=== PATIENT | male | born 2000 | race Caucasian/White ===

== ENCOUNTER 2020-06-20 12:15 | Emergency (ER) | payer BC ==
[~2020-06-20] VITALS: Ht 182.9 cm; Wt 88.6 kg
[2020-06-20 12:18] VITALS: BP 124/85; TEMP 99
[2020-06-20] MEDS ORDERED: SSD25 GM TP (13:09)
[2020-06-20 13:34] VITALS: PULSE 85
== END 2020-06-20 13:30 | disposition home or self-care (01) ==
LOC: COL.ER 12:15
DX: T24.101A Burn of first degree of unspecified site of right lower limb, except ankle and foot, initial encounter (principal); T24.102A Burn of first degree of unspecified site of left lower limb, except ankle and foot, initial encounter; T31.0 Burns involving less than 10% of body surface; X10.2XXA Contact with fats and cooking oils, initial encounter; Y92.009 Unspecified place in unspecified non-institutional (private) residence as the place of occurrence of the external cause

== ENCOUNTER 2020-08-14 12:33 | Emergency (ER) | payer BC ==
[~2020-08-14] VITALS: Ht 182.9 cm; Wt 86.4 kg
[~2020-08-14 12:33] MED LIST: SSD25 GM TP
[2020-08-14 12:34] VITALS: TEMP 98.2
[2020-08-14 12:50] LABS: BASO # 0.1 (0.0-0.2); BASO % 0.5 % (0.0-2.0); EOS # 0.2 (0.0-0.7); EOS % 2.3 % (0-4.0); GRAN # 7.9 (1.4-6.5); GRAN % 78.5 % (42.2-75.2); HEMATOCRIT 44.3 % (36.0-47.0); HEMOGLOBIN 15.1 g/dl (12.5-16.1); LYMPH # 1.2 (1.2-3.4); LYMPH % 12.1 % (20.0-51.0); MEAN CELL VOLUME 91 fl (80.0-95.0); MEAN CORPUSCULAR HEMOGLOBIN 31 pg (26.0-32.0); MEAN CORPUSCULAR HGB CONC 34 g/dl (33.0-37.0); MEAN PLATELET VOLUME 9.4 fl (7.4-10.4); MONO # 0.6 (0.1-0.6); MONO % 6.2 % (1.7-9.3); PLATELET COUNT 221 K/mm3 (130-400); RED BLOOD COUNT 4.89 M/mm3 (4.20-5.60); REDCELL DISTRIBUTION WIDTH-CV 12.7 % (11.5-14.5)
[2020-08-14 13:15] LABS: ALANINE AMINOTRANSFERASE 23 U/L (4-49); ALBUMIN 4.6 gm/dL (3.5-5.0); ALKALINE PHOSPHATASE 82 U/L (50-136); ANION GAP 9 mmol/L (7-16); AST,SGOT 44 U/L (15-37); BILIRUBIN,TOTAL 0.8 mg/dL (0.0-1.0); BLOOD UREA NITROGEN 12 mg/dL (9-20); CALCIUM 9.2 mg/dL (8.4-10.2); CARBON DIOXIDE 27 mmol/L (22-30); CHLORIDE 105 mmol/L (98-107); CREATININE, serum 0.92 (0.66-1.25); GLUCOSE 95 mg/dL (74-106); SODIUM 141 mmol/L (137-145); TOTAL PROTEIN 7.7 gm/dL (6.4-8.2)
[2020-08-14 13:17] LABS: ALCOHOL(ethanol),MEDICAL < 10 mg/dL
[2020-08-14] MEDS ORDERED: NORCO 325 MG-51 TAB PO (14:20)
[2020-08-14 14:40] VITALS: BP 122/76; PULSE 76
== END 2020-08-14 14:43 | disposition home or self-care (01) ==
LOC: COL.ER 12:33
PROVIDERS: Emergency Medicine
DX: S06.0X9A Concussion with loss of consciousness of unspecified duration, initial encounter (principal); S80.212A Abrasion, left knee, initial encounter; V29.9XXA Motorcycle rider (driver) (passenger) injured in unspecified traffic accident, initial encounter; Y92.410 Unspecified street and highway as the place of occurrence of the external cause

== ENCOUNTER 2022-03-27 19:16 | Emergency (ER) | payer BC ==
[~2022-03-27] VITALS: Ht 185.4 cm; Wt 88.6 kg
[~2022-03-27 19:16] MED LIST changes: +NORCO 325 MG-51 TAB PO
[2022-03-27 19:23] VITALS: BP 120/71; PULSE 107; TEMP 97.4
[2022-03-28] MEDS ORDERED: CEPHALEXIN500 M1 PO (03:01)
== END 2022-03-27 21:31 | disposition left against medical advice (07) ==
LOC: COL.ER 19:16
DX: S61.212A Laceration without foreign body of right middle finger without damage to nail, initial encounter (principal); F17.290 Nicotine dependence, other tobacco product, uncomplicated; Z28.310 Unvaccinated for COVID-19; W22.8XXA Striking against or struck by other objects, initial encounter

== ENCOUNTER 2022-03-29 00:10 | Emergency (ER) | payer BC ==
[~2022-03-29] VITALS: Ht 182.9 cm; Wt 86.4 kg
[~2022-03-29 00:10] MED LIST changes: +CEPHALEXIN500 M1 PO
[2022-03-29 00:16] VITALS: TEMP 98.7
[2022-03-29 00:30] VITALS: BP 130/78; PULSE 76
[2022-03-29] MEDS ORDERED: CEPHALEXIN500 M1 PO (02:16)
== END 2022-03-29 00:30 | disposition home or self-care (01) ==
LOC: COL.ER 00:10
DX: S02.2XXA Fracture of nasal bones, initial encounter for closed fracture (principal); S01.81XA Laceration without foreign body of other part of head, initial encounter; S61.212A Laceration without foreign body of right middle finger without damage to nail, initial encounter; Z28.310 Unvaccinated for COVID-19; W26.8XXA Contact with other sharp object(s), not elsewhere classified, initial encounter